=== PATIENT | female | born 1975 | race Caucasian/White ===

== ENCOUNTER 2017-10-29 04:54 | Outpatient (CLI) | payer MEDICARE, OTHER | END 2017-10-29 23:59 | disposition home or self-care (01) | LOC: DIABETIC 04:54 | PROVIDERS: ATTEND Specialist | DX: E11.65 Type 2 diabetes mellitus with hyperglycemia (principal) | CPT/HCPCS: G0108 ==

== ENCOUNTER 2019-03-29 21:48 | Inpatient (IN) | payer MEDICARE, OTHER ==
[~2019-03-29] VITALS: Ht 162.6 cm; Wt 58.0 kg
--- NOTE | 2019-03-29 23:10 | NUR ---
PT RESTING IN BED ,FAMILY AT BEDSIDE ,WAITING FOR MD TO COME BY AND SEE PT.
[2019-03-29] MEDS ORDERED: dexamethasone 4mg/ml inj IV SCH (23:45)
[2019-03-29] MEDS ORDERED: proCHLORperazine 10 MG/2 ml inj IV ONE (23:45)
[2019-03-29] MEDS ORDERED: diphenhydrAMINE 50 mg/ml inj IV ONE (23:45)
--- NOTE | 2019-03-30 00:25 | NUR ---
PT REFUSED HER IV MEDS PT SAID SHE DOES NOT WANT IV OR ORAL MEDS DUE TO HER KIDNEY TRANSPLANT.NOTIFIED DR HERNANDEZ ,NO NEW ORDERS.
[2019-03-30 00:48] LABS: CLARITY,URINE CLEAR (Clear); COLOR,URINE YELLOW (Yellow); GLUCOSE, URINE NEGATIVE (Neg); KETONES,URINE NEGATIVE (Neg); LEUKOCYTE ESTERASE ,URINE NEGATIVE (Neg); NITRITES, URINE NEGATIVE (Neg); OCCULT BLOOD,URINE NEGATIVE (Neg); PROTEIN,URINE NEGATIVE (Neg); UROBILINOGEN,URINE 0.2 E.U/dL (0.2-1.0)
[2019-03-30 00:56] LABS: UA COLLECTION TYPE CLN CATCH MIDSTREAM
[2019-03-30 01:03] LABS: EOSINOPHILS # (AUTO) 0.1 X10'3 (0-0.9); EOSINOPHILS % (AUTO) 4.3 % (0-6); HEMATOCRIT 27.1 % (35.0-45.0); HEMOGLOBIN 8.8 g/dl (12.0-16.0); LYMPHOCYTES # (AUTO) 0.6 X10'3 (1.1-4.8); LYMPHOCYTES % (AUTO) 42.7 % (21-51); MEAN CORPUSCULAR HEMOGLOBIN 23.2 PG (27.0-31.0); MEAN CORPUSCULAR HGB CONC 32.5 g/dL (33.0-36.5); MEAN CORPUSCULAR VOLUME 71.5 FL (78-98); MEAN PLATELET VOLUME 9.2 FL (7.4-10.4); MONOCYTES # (AUTO) 0.7 X10'3 (0-0.9); MONOCYTES % (AUTO) 49.4 % (2-12); NEUTROPHILS % (AUTO) 1.6 % (42-75); PLATELET COUNT 290 X10'3 (140-440); RED BLOOD COUNT 3.78 X10'6 (4.20-5.60); RED CELL DISTRIBUTION WIDTH 16.8 % (11.5-14.5); WHITE BLOOD COUNT 1.4 X10'3 (4.5-11.0)
[2019-03-30 01:12] LABS: ALANINE AMINOTRANSFERASE 13 U/L (12-78); ALBUMIN 3.3 G/DL (3.4-5.0); ALBUMIN/GLOBULIN RATIO 0.9 (1.1-1.5); ALKALINE PHOSPHATASE 47 IU/L (46-116); ANION GAP 9 (8-16); ASPARTATE AMINO TRANSFERASE 7 U/L (10-37); BILIRUBIN,TOTAL 0.3 MG/DL (0.1-1.0); BLOOD UREA NITROGEN 15 MG/DL (7-18); BUN/CREATININE RATIO 12.2 (6.6-38.0); CALCIUM 8.7 MG/DL (8.5-10.1); CHLORIDE 103 MMOL/L (99-107); CREATININE 1.23 MG/DL (0.40-0.90); GLUCOSE 140 MG/DL (70-104); POTASSIUM 3.8 MMOL/L (3.5-5.1); SODIUM 138 MMOL/L (135-145); TOTAL CARBON DIOXIDE 25.7 MMOL/L (24-32); TOTAL PROTEIN 6.8 G/DL (6.4-8.2); eGFR 48 ML/MIN
[2019-03-30 01:37] LABS: ANISOCYTOSIS 1+; MICROCYTOSIS 1+; PLATELET ESTIMATE NORMAL; TOTAL CELLS COUNTED 100
[2019-03-30 03:15] LABS: EOSINOPHILS # (AUTO) 0.1 X10'3 (0-0.9); EOSINOPHILS % (AUTO) 5.2 % (0-6); HEMATOCRIT 29.7 % (35.0-45.0); HEMOGLOBIN 9.4 g/dl (12.0-16.0); LYMPHOCYTES # (AUTO) 0.6 X10'3 (1.1-4.8); LYMPHOCYTES % (AUTO) 42.6 % (21-51); MEAN CORPUSCULAR HEMOGLOBIN 22.8 PG (27.0-31.0); MEAN CORPUSCULAR HGB CONC 31.7 g/dL (33.0-36.5); MEAN CORPUSCULAR VOLUME 71.9 FL (78-98); MEAN PLATELET VOLUME 9.5 FL (7.4-10.4); MONOCYTES # (AUTO) 0.7 X10'3 (0-0.9); MONOCYTES % (AUTO) 49.2 % (2-12); PLATELET COUNT 325 X10'3 (140-440); RED BLOOD COUNT 4.12 X10'6 (4.20-5.60); RED CELL DISTRIBUTION WIDTH 16.7 % (11.5-14.5); WHITE BLOOD COUNT 1.4 X10'3 (4.5-11.0)
--- NOTE | 2019-03-30 03:43 | NUR ---
TELENEURO IN ROOM AND SET UP FOR ONLINE CONSULT. NEUTROPENIC PRECAUTIONS IN PLACE.
[2019-03-30] MEDS ORDERED: ATEN-169 PO (04:23)
[2019-03-30] MEDS ORDERED: MYCO250C PO (04:23)
[2019-03-30] MEDS ORDERED: TRAN650T2 PO (04:23)
[2019-03-30] MEDS ORDERED: MULT-955 PO (04:23)
[2019-03-30] MEDS ORDERED: TACR1CAP22 PO (04:23)
[2019-03-30] MEDS ORDERED: METF500T PO (04:23)
[2019-03-30] MEDS ORDERED: CHOL10002 PO (04:23)
[2019-03-30] MEDS ORDERED: PRED5TAB PO (04:23)
[2019-03-30] MEDS ORDERED: INSU300I (04:23)
[2019-03-30] MEDS ORDERED: TBO-filgrastim 300 MCG/0.5 ML inj. SQ ONE (05:25)
[2019-03-30] MEDS ORDERED: acetaminophen 325mg tablet PO PRN ×2 (05:35)
[2019-03-30] MEDS ORDERED: ondansetron/PF 4mg/2ml inj IV PRN (05:35)
[2019-03-30] MEDS ORDERED: atenolol 50mg tablet PO PRN (05:55)
--- NOTE | 2019-03-30 06:29 | NUR ---
granix medication would not scann
--- NOTE | 2019-03-30 07:04 | NUR ---
PT EATING FOOD FLY/FRIENDS BROUGHT IN. STATES TAKES DIABETIC ORAL MEDS AT NOON AND NIGHT
[2019-03-30] MEDS ORDERED: multivitamins, therapeutics tablet PO SCH (08:00)
[2019-03-30] MEDS ORDERED: vitamin D (cholecalciferol) 1,000 unit tablet PO SCH (08:00)
[2019-03-30] MEDS: metFORMIN 500mg tablet PO SCH ×2 (08:00→12:00)
--- NOTE | 2019-03-30 08:16 | NUR ---
SPOKE TO DR CLAUDIO WHO SAID TO CALL DR BROUSSARD AT - INFORMED HIM OF PT'S REQUEST TO SPEAK TO HIM CONCERNING MRI NOT BEING DONE TODAY AND NEED TO CONTACT OCTAVIANO RAYMOND. DR BROUSSARD STATES WILL BE HER SHORTLY TO SPEAK TO PATIENT
--- NOTE | 2019-03-30 08:33 | NUR ---
pt refuses iv and telementry
[2019-03-30] MEDS ORDERED: normal saline 1000ml 1,000 ML IV SCH (09:25)
[2019-03-30 10:00] VITALS: BP 111/68
[2019-03-30] MEDS ORDERED: MESSAGE TO NURSING PO NR (10:00)
[2019-03-30] MEDS ORDERED: predniSONE 5mg tablet PO SCH (10:05)
--- NOTE | 2019-03-30 10:05 | NUR ---
Patient refusing tele monitor at this time. is aware, will continue to encourage and explain the purpose of it.
[2019-03-30] MEDS ORDERED: tacrolimus anhydrous 1mg capsule PO SCH (11:09)
--- NOTE | 2019-03-30 11:32 | NUR ---
Malnutrition consult: Pt admit w/ neutropenia r/t anti-rejection medications from prior renal transplant. WBC 1.4 w/ anti-rejection meds held at this time per MD. Pt physical assessment and PO hx both pt as well as current wt pt stated and not scaled. At this time not enough information to determine malnutrition status; will f/u for additional criteria this admit. Pt hx T2DM no A1C; would benefit from A1C to determine needs for diet changes and/or DM education interventions if necessary. Will continue to monitor. Addendum: 03/30/19 at [address] Amended: Links added.
[2019-03-30] MEDS ORDERED: iohexol 300mg/ml 100ml inj. ONE (12:27)
[2019-03-30 14:00] VITALS: BP 140/82
[2019-03-30 14:01] LABS: BASOPHILS % (AUTO) 1.4 % (0-1); EOSINOPHILS % (AUTO) 1.9 % (0-6); HEMATOCRIT 26.4 % (35.0-45.0); HEMOGLOBIN 8.5 g/dl (12.0-16.0); LYMPHOCYTES # (AUTO) 0.4 X10'3 (1.1-4.8); LYMPHOCYTES % (AUTO) 23.8 % (21-51); MEAN CORPUSCULAR HEMOGLOBIN 23.2 PG (27.0-31.0); MEAN CORPUSCULAR HGB CONC 32.3 g/dL (33.0-36.5); MEAN CORPUSCULAR VOLUME 71.9 FL (78-98); MEAN PLATELET VOLUME 9.2 FL (7.4-10.4); MONOCYTES % (AUTO) 68.3 % (2-12); NEUTROPHILS # (AUTO) 0.1 X10'3 (1.8-7.7); NEUTROPHILS % (AUTO) 4.6 % (42-75); PLATELET COUNT 275 X10'3 (140-440); RED BLOOD COUNT 3.68 X10'6 (4.20-5.60); RED CELL DISTRIBUTION WIDTH 16.6 % (11.5-14.5)
[2019-03-30 14:33] LABS: ANISOCYTOSIS 1+; HYPOCHROMASIA 1+; MICROCYTOSIS 1+; PLATELET ESTIMATE NORMAL; POLYCHROMASIA 1+; TOTAL CELLS COUNTED 100
[2019-03-30 14:34] LABS: POIKILOCYTOSIS 1+; SCHISTOCYTES FEW; WHITE BLOOD COUNT 1.5 X10'3 (4.5-11.0)
--- NOTE | 2019-03-30 15:45 | NUR ---
Dr. Lu called, results of CT and lab results given. Patient was given results and Dr. Lu said he wanted to keep the patient another night, to order a echocardiogram and see how her labs are tomorrow morning. Patient agreed to plan of care at this time.
--- NOTE | 2019-03-30 16:30 | NUR ---
Patient refused product engineer all day, stating "Why are they looking at my heart? Thats not the problem" I educated patient for purpose of tests, we are ruling out stroke and other conditions, and that this is standard procedure. Patient requested that Dr. Chatterjee transfer her to [facility] where she follows up with kidney transplant specialist. Dr. Lu was called and he said he was not going to transfer her to [facility], he wants to keep her overnight and see how she does tomorrow. I told the patient the plan of care and she said stated she wants to check out and drive down to [facility]. I informed her that would be Against Medical Advise, and it is not recommended. I educated her on importance of tests and staying for observation, Patient signed AMA form and Dr. Lu was notified.
--- NOTE | 2019-03-30 16:40 | NUR ---
Patient signed AMA form; IV was taken out and patient left the unit at 1640. Patient was educated on risks of leaving the hospital against medical advise.
[2019-03-31] MEDS ORDERED: TACROLIMUS 1 MG PO SCH (08:00)
[2019-03-31] MEDS ORDERED: TRANEXAMIC ACID 650 MG PO SCH (08:00)
== END 2019-03-30 16:40 | disposition left against medical advice (07) | DRG 809 ==
LOC: ER 21:49 → ORTHO 4S 03-30 08:42
PROVIDERS: ADMIT Internal Medicine Critical Care Medicine; ATTEND Internal Medicine Critical Care Medicine
DX: D70.9 Neutropenia, unspecified (principal); Z94.0 Kidney transplant status; R51 Headache; E11.9 Type 2 diabetes mellitus without complications; Z53.21 Procedure and treatment not carried out due to patient leaving prior to being seen by health care provider; E28.2 Polycystic ovarian syndrome; I10 Essential (primary) hypertension; Z88.0 Allergy status to penicillin; Z88.5 Allergy status to narcotic agent; Z79.899 Other long term (current) drug therapy
CPT/HCPCS: 36415; 70450; 70460; 80053; 81003; 82948; 85025; 85610; 87081; 96372; 99285; G0378; J0780; J1100; J1200; J1442; J7030; J7507; J7512; Q9967